=== PATIENT | male | born 2000 ===

== ENCOUNTER 2024-03-04 16:54 | Outpatient (REF) | payer BC, SELFPAY ==
--- OUTSIDE RECORDS SUMMARY | 2024-03-04 16:56 | XMS_ITS | Continuity of Care Document ---
Author Organization [facility] Address [address] [place] [address], [facility] [address] [place] [address] Phone [phone] Care Team Providers Care Print Traffic Manager Name Role Phone Tasia Damon Care Team Information Receive r [phone] Problems Active Problems Provider Date Migraine ISA De León Onset: 2022 Note: well controlled, years since he has had one Insomnia ISA De León Onset: 2022 Panic disorder ISA De León Onset: 2022 Attention deficit hyperactivity disorder ISA De León Onset: 08/07/2022 Irritable bowel syndrome ISA De León Onse t: 08/07/2022 Note: mixed Social History Type Date Description Comments Sex Male Tobacco Use Reviewed: 03/11/23 Never Used Smokeless Tobacco ETOH Use 08/07/2022 Currently consum es alcohol Usually wine, 2-3 nights per week Tobacco Use Start: Unknown End: Unknown Patient is a former smoker smoked approximately 1 year; currently smokes hemp/cbd Recreational Drug Use 08/07/2022 Former Drug User hx of marijuana in 2020 Recreational Drug Use 08/07/2022 Denies Drug Use Smoking Status Reviewed: 03/11/23 Patient is a former smoker smoked approximately 1 year; currently smokes hemp/cbd Exercise Type/Frequency 10/12/2022 Exercises sporadi asaf Guns in Home 09/04/2022 No Smoke Alarms Yes Allergies and adverse reactions Description No Known Drug Allergies Medications Active Medications SIG Qnty Indications Ordering Provider Date [id number]/GM Powder apply topically to affected area twice a day 30gm B35.6 Francy Zapata NP 03/11/2023 Ketoconazole2% Cream Apply cream bid x 2 weeks 60gm B36.0 ISA De León 11/20/2022 [id number] Tablets Take 1 Tablet By Mouth AT Bedtime Unknown Propranolol [id number] Tablets Take 1 Tablet By Mouth Three Times Daily as Needed Unknown One Daily MensTablets one daily Unknown Immunizations CPT Code Status Date Vaccine Lot # [id number] Given 08/17/2022 Tdap ( State Supply) 19-6 4yrs [id number] 61457 Given 09/08/2020 Covid-19 Vac Moderna (His torical) 12yrs+ 41667 Given 08/11/2020 Covid-19 Vaccine Moderna( Historical) Dose 2 20752 Given 02/29/2020 Influenza Vaccine, Quad ( Historical) 12810 Given 02/04/2018 Influenza Vaccine, Quad ( Historical) 51109 Given 07/26/2017 Meningococcal MCV4 (Histo rical) 54822 Given 02/23/2017 Influenza Vaccine, Quad ( Historical) 59781 Given 03/18/2016 Influenza Vaccine, Quad ( Historical) 39941 Given 01/25/2015 Influenza Vaccine, Quad ( Historical) 18594 Given 01/25/2015 Hep A Ped/Adol (Historica l) 68671 Given 07/20/2014 Hep A Ped/Adol (Historica l) 58322 Given 07/20/2014 HPV 9 (Historical) 44240 Given 03/21/2014 Influenza Vaccine, Quad ( Historical) 48451 Given 05/24/2013 HPV 9 (Historical) 69951 Given 01/11/2013 HPV 9 (Historical) 80303 Given 11/09/2012 Meningococcal MCV4 (Histo rical) 12808 Given 11/09/2012 Tdap (Historical) 72666 Given 11/09/2012 HPV 9 (Historical) 24420 Given 12/17/2005 Varicella (Historical) 75673 Given 10/22/2005 DTap <7yrs Infanrix (Hi storical) 71766 Given 10/22/2005 IPV (Historical) 38225 Given 10/22/2005 Varicella (Historical) 31172 Given 10/22/2005 MMR (Historical) 16720 Given 04/18/2002 DTap <7yrs Infanrix (Hi storical) 22276 Given 01/17/2002 MMR (Historical) 35527 Given 01/17/2002 Hib (Historical) 75656 Given 10/17/2001 Hep B Ped/Ado (Historical ) 57081 Given 10/17/2001 PCV 7 (Historical) 87117 Given 07/21/2001 IPV (Historical) 57247 Given 05/20/2001 Hep B Ped/Ado (Historical ) 80635 Given 05/19/2001 PCV 7 (Historical) 66887 Given 05/19/2001 Hib (Historical) 49764 Given 05/19/2001 DTap <7yrs Infanrix (Hi storical) 85363 Given 02/17/2001 Hep B Ped/Ado (Historical ) 00988 Given 02/17/2001 IPV (Historical) 40644 Given 02/17/2001 DTap <7yrs Infanrix (Hi storical) 45217 Given 02/17/2001 Hib (Historical) 44002 Given 2000 IPV (Historical) 75962 Given 2000 DTap <7yrs Infanrix (Hi storical) 92655 Given 2000 PCV 7 (Historical) 74064 Given 2000 Hib (Historical) Vital Signs Date Vital Result Comment 03/11/2023 3:05pm Weight 221.31 lb with shoes Weight 100.387 kg Height 70.87 inches 5'10.87 Height in cm's 180.0 cm BP Systolic 108 mmHg Cuff- Large, Lef t Arm BP Diastolic 56 mmHg Cuff- Large, Lef t Arm Heart Rate 76 /min Pulse- Radial, R ate- Regular Body Temperature 98.6 F Tympanic Body Temperature 37.0 C Respiratory Rate 70.87 /min Unlabored O2 % BldC Oximetry 97 % On Room Air BMI (Body Mass Index) 31.0 kg/m2 11/21/2022 7:45pm Weight 212.38 lb Weight 96.333 kg Height 70.87 inches 5'10.87 Height in cm's 180.0 cm BP Systolic 140 mmHg Cuff- Large, Lef t Arm BP Diastolic 72 mmHg Cuff- Large, Lef t Arm Heart Rate 73 /min Electronically A cq Body Temperature 99.3 F Tympanic Body Temperature 37.4 C Respiratory Rate 20 /min O2 % BldC Oximetry 99 % On Room Air BMI (Body Mass Index) 29.7 kg/m2 Medical Devices Description No Information Available Encounters Description No Information Available Plan of Treatment 03/11/2023 - Francy Zapata NP* B35.6 Tinea cruris* New Medication:* Nystatin 359879 Unit/GM - apply topically to affected area twice a day * L60.0 Ingrowing nail Functional Status Description No Information Available Mental Status Description No Information Available Referrals Description No Information Available
== END 2024-03-04 16:55 | disposition home or self-care (01) ==
LOC: LBN 16:54
PROVIDERS: Visit Provider Physician Assistant Medical
DX: J02.9 Acute pharyngitis, unspecified (principal)
CPT/HCPCS: 87070